=== PATIENT | male | born 1955 | race Caucasian/White ===

== ENCOUNTER 2024-12-21 13:03 | Outpatient (REF) | payer MEDICARE, SELFPAY ==
[2024-12-21 14:38] LABS: ESR 17 mm/hr (0-20)
[2024-12-21 14:41] LABS: HCT 34.3 % (40.0-50.0); HGB 11.3 g/dL (13.5-17.5); MCH 30.5 pg (27.0-33.0); MCHC 32.9 % (32.0-36.0); MCV 93 fL (80-95); MPV 10.5 fL (8.0-11.0); Platelet Count 280 10^3/uL (130-400); RBC 3.70 10^6/uL (4.36-5.78); RDW 12.2 % (11.8-14.1); RDW-SD 41.5 fL; WBC 4.01 10^3/uL (4.4-10.8)
[2024-12-21 15:23] LABS: ALT 27 U/L (16-63); AST 25 U/L (15-37); Albumin 3.7 g/dL (3.4-5.0); Alkaline Phosphatase 73 U/L (46-116); Anion Gap 10.6 mmol/L (3-11); BUN 11 mg/dL (7-18); Bilirubin, Total 0.4 mg/dL (0.2-1.0); CO2 27.4 mmol/L (21.0-32.0); Calcium 8.6 mg/dL (8.5-10.1); Calculated LDL 125 mg/dL (<100); Chloride 102 mmol/L (98-107); Cholesterol 197 mg/dL (<200); Estimated GFR 103.85 (mL/min/1.73m2); Glucose 90 mg/dL (74-106); HDL Cholesterol 60 mg/dL (>or=40); Potassium 4.3 mmol/L (3.5-5.1); Sodium 140 mmol/L (136-145); TSH (W/Ref FT4) 2.67 uIU/mL (0.36-3.74); Total Protein 6.7 g/dL (6.4-8.2); Triglyceride 61 mg/dL (<150); Vitamin B12 725 pg/mL (193-986)
[2024-12-21 17:03] LABS: C-Reactive Protein < 0.50 mg/dL (<or=0.5)
[2024-12-22 17:12] LABS: Total Iron Binding Capacity 235 ug/dL (250-450)
[2024-12-22 17:24] LABS: Ferritin 44 ng/mL (26-388)
== END 2024-12-21 13:04 | disposition home or self-care (01) ==
LOC: NCHCN 13:03
PROVIDERS: Visit Provider Internal Medicine
DX: Z78.9 Other specified health status (principal); R53.83 Other fatigue; M45.9 Ankylosing spondylitis of unspecified sites in spine; Z13.6 Encounter for screening for cardiovascular disorders; D64.9 Anemia, unspecified
CPT/HCPCS: 80053; 80061; 85027; 85652; 82607; 82728; 83550; 84443; 86140

== ENCOUNTER 2024-12-30 15:46 | Outpatient (REF) | payer MEDICARE, SELFPAY ==
[2024-12-30 16:08] LABS: Iron 99 ug/dL (65-175)
[2024-12-30 16:22] LABS: Folate 18.8 ng/mL (8.6-20.0)
== END 2024-12-30 15:47 | disposition home or self-care (01) ==
LOC: NCHCN 15:46
PROVIDERS: Visit Provider Internal Medicine
DX: D64.9 Anemia, unspecified (principal)
CPT/HCPCS: 82746; 83540; 85045